=== PATIENT | male | born 1955 | race Caucasian/White ===

== ENCOUNTER 2020-06-28 18:19 | Emergency (ER) | payer BC ==
[2020-06-28] MEDS ORDERED: Lidocaine 1% 20 ML MDV INJECT ONE (18:25)
[2020-06-28] MEDS ORDERED: Lidocaine 1% 20 ML MDV ONE (18:27)
--- NOTE | 2020-06-28 19:09 | EDM.PDOC ---
ED HPI GENERAL MEDICAL PROBLEM - General Chief Complaint: Bite:Animal, Insect Stated Complaint: Dog Bite Time Seen by Provider: 06/28/20 19:07 Source of Information: Reports: Patient History Limitations: Reports: No Limitations - History of Present Illness INITIAL COMMENTS - FREE TEXT/NARRATIVE: This patient is a 64 year old that presents to the ER. Patient reports that his friend had a small dog and the dog was getting upset so he tried to pet and calm it down. He reports the drog bit his lower lip. Denies other injury. Reports Tetanus UTD. Onset: Today Onset Date: 06/28/20 Duration: Hour(s): (1) Location: Reports: Face (Lip) Front/Back Body Image: 1 - lower lip laceration Severity: Mild Improves with: Reports: None Worsens with: Reports: None Associated Symptoms: Reports: No Other Symptoms lower lip Pain Score (Numeric/FACES): 5 - Related Data Allergies Allergy/AdvReac Type Severity Reaction Status Date / Time No Known Allergies Allergy Verified 06/28/20 18:33 Home Meds: Home Meds Amoxicillin/Potassium Clav [Augmentin 875-125 Tablet] 1 each PO BID 7 Days #14 tablet 06/28/20 [Rx] Past Medical History - Past Health History Medical/Surgical History: Denies Medical/Surgical History Cardiovascular History: Reports: SD Musculoskeletal History: Reports: Back Pain, Chronic - Past Surgical History Neurological Surgical History: Reports: Lumbar Spine Musculoskeletal Surgical History: Reports: Carpal Tunnel, Other (See Below) Other Musculoskeletal Surgeries/Procedures:: ulnar nerve surgery Social & Family History - Family History Family Medical History: Noncontributory - Tobacco Use Smoking Status *Q: Current Every Day Smoker Years of Tobacco use: 20 Packs/Tins Daily: 0.5 - Caffeine Use Caffeine Use: Reports: None - Recreational Drug Use Recreational Drug Use: No ED ROS GENERAL - Review of Systems Review Of Systems: See Below Constitutional: Reports: No Symptoms Respiratory: Reports: No Symptoms Cardiovascular: Reports: No Symptoms Musculoskeletal: Reports: No Symptoms Skin: Reports: Wound (lower lip laceration) Neurological: Reports: No Symptoms Psychiatric: Reports: No Symptoms ED EXAM, ANIMAL BITE - Physical Exam Exam: See Below Exam Limited By: No Limitations General Appearance: Alert, WD/WN, No Apparent Distress Eye Exam: Bilateral Eye: Normal Inspection, PERRL Ears: Normal External Exam, Normal Canal, Hearing Grossly Normal, Normal TMs Nose: Normal Inspection, Normal Mucosa, No Blood Throat/Mouth: Normal Inspection, Normal Teeth (dentures upper and lowers), Normal Gums, Normal Oropharynx, Normal Voice, No Airway Compromise, Other (mid lower lip laceration) Head: Other (ower lip swelling at laceration site). No: Facial Tenderness, Sinus Tenderness Neck: Normal Inspection, Supple, Non-Tender, Full Range of Motion Respiratory/Chest: No Respiratory Distress, Lungs Clear, Normal Breath Sounds Cardiovascular: Normal Peripheral Pulses, Regular Rate, Rhythm, No Edema, No Gallop, No JVD, No Murmur, No Rub Extremities: Normal Inspection Neurological: Alert, Oriented Psychiatric: Normal Affect, Normal Mood Skin Exam: Normal Color, Warm/Dry, Other (mid lip lower laceration) Lymphadenopathy: Bilateral: No Adenopathy ED ANIMAL BITE PROCEDURES - Laceration/Wound Repair Lower Midline Other Lac/Wound Length In cm: 2 Appearance: Superficial, Other (lower lip midline) Distal NVT: Neuro & Vascular Intact, No Tendon Injury Anesthetic Type: Local Local Anesthesia - Lidocaine (Xylocaine): 1% Plain Local Anesthetic Volume: 1cc Skin Prep: Chlorhexidine (Hibiciens) Exploration/Debridement/Repair: Wound Explored, In a Bloodless Field, Explored to Base, No Foreign Material Found, Multiple Flaps Aligned Closed With: Sutures Suture Size: 5-0 # of Sutures: 2 Suture Type: Nylon, Interrupted Tetanus Status Addressed: Yes (not given: its UTD per patient) Complications: No Course - Vital Signs Last Recorded V/S: Last Vital Signs Temp 97.4 F 06/28/20 18:22 Pulse 89 06/28/20 18:22 Resp 16 06/28/20 18:22 BP 157/76 H 06/28/20 18:22 Pulse Ox 97 06/28/20 18:22 - Orders/Labs/Meds Meds: Medications Discontinued Medications Generic Name Dose Route Start Last Admin Trade Name Freq PRN Reason Stop Dose Admin Lidocaine HCl Confirm 06/28/20 18:27 Xylocaine 1% Administered 06/28/20 18:28 Dose 20 ml .ROUTE .STK-MED ONE Departure - Departure Time of Disposition: 19:07 Disposition: Home, Self-Care 01 Condition: Good Clinical Impression: Laceration Dog bite Qualifiers: Encounter type: initial encounter Qualified Code(s): W54.0XXA - Bitten by dog, initial encounter - Discharge Information *PRESCRIPTION DRUG MONITORING PROGRAM REVIEWED*: Not Applicable *COPY OF PRESCRIPTION DRUG MONITORING REPORT IN PATIENT RAHEEL: Not Applicable Prescriptions: Amoxicillin/Potassium Clav [Augmentin 875-125 Tablet] 1 each PO BID 7 Days #14 tablet Instructions: Animal Bite, Adult, [id number], Laceration Care, Adult Forms: ED Department Discharge Additional Instructions: Followup with primary care provider in about 5 days for suture removal Return to the ER for worsening of condition or any emergent concerns such as drainage, fever, vomiting, redness Wash the wound gently with soap and water, rinse, pat dry: Keep clean Augmentin 875mg 1 pill twice a day for 7 days #14 no refill sent to pharmacy Sepsis Event Note (ED) - Evaluation Sepsis Screening Result: No Definite Risk - Focused Exam Vital Signs: Vital Signs Temp Pulse Resp BP Pulse Ox 06/28/20 18:22 97.4 F 89 16 157/76 H 97 - Assessment/Plan Plan: PLEASE SEE RN NOTE FOR PFHS.
== END 2020-06-28 19:30 | disposition home or self-care (01) ==
LOC: CC.ED 18:19
DX: S01.551A Open bite of lip, initial encounter (principal); S01.511A Laceration without foreign body of lip, initial encounter; I25.2 Old myocardial infarction; F17.210 Nicotine dependence, cigarettes, uncomplicated; W54.0XXA Bitten by dog, initial encounter
CPT/HCPCS: 12011; 99283; J2001

== ENCOUNTER 2023-11-10 16:10 | Emergency (ER) | payer MEDICARE ==
[2023-11-10 16:32] LABS: BASOPHILS ABSOLUTE AUTO 0.04 10^3/uL (0.00-0.50); BASOPHILS PERCENT AUTO 0.4 % (0-1); EOSINOPHILS ABSOLUTE AUTO 0.06 10^3/uL (0.00-1.50); EOSINOPHILS PERCENT AUTO 0.6 % (0-6); HEMATOCRIT 46.9 % (42.0-52.0); HEMOGLOBIN 15.6 g/dL (14.0-18.0); IMMATURE GRAN ABSOLUTE AUTO 0.01 10^3/uL (0.00-0.49); IMMATURE GRAN PERCENT AUTO 0.1 % (0.0-4.9); LYMPHOCYTES ABSOLUTE AUTO 1.62 10^3/uL (0.60-5.00); LYMPHOCYTES PERCENT AUTO 16.7 % (24-44); MEAN CORPUSCULAR HEMOGLOBIN 32.4 pg (27.0-32.0); MEAN CORPUSCULAR HGB CONC 33.3 g/dL (32.0-36.0); MEAN CORPUSCULAR VOLUME 97.3 fL (83.0-97.0); MONOCYTES ABSOLUTE AUTO 0.71 10^3/uL (0.00-1.50); MONOCYTES PERCENT AUTO 7.3 % (0-10); NEUTROPHILS ABSOLUTE AUTO 7.28 x10^3/uL (1.80-8.00); NEUTROPHILS PERCENT AUTO 74.9 % (41-71); PLATELET COUNT,PLT 252 10^3/uL (150-400); RED BLOOD CELL COUNT 4.82 x10^6/uL (4.50-6.00); WHITE BLOOD CELL COUNT,WBC 9.7 10^3/uL (4.0-11.0)
[2023-11-10 16:52] LABS: ALBUMIN 3.1 g/dL (3.4-5.0); BILIRUBIN TOTAL 0.4 mg/dL (0.0-1.0); C-REACTIVE PROTEIN 4.17 mg/dL (<=0.50); CALCIUM 8.9 mg/dL (8.4-10.1); EST CRCL DRUG DOSING (CG) 75.88 mL/min; POTASSIUM,K 3.8 mEq/L (3.5-5.0)
[2023-11-10] MEDS ORDERED: Nirmatrelvir/Ritonavir 300 MG/100 MG Dose Pack PO SCH (17:00)
== END 2023-11-10 17:25 | disposition home or self-care (01) ==
LOC: CC.ED 16:10
DX: U07.1 COVID-19 (principal); I25.2 Old myocardial infarction; Z79.899 Other long term (current) drug therapy
CPT/HCPCS: 36415; 71046; 80053; 85025; 86140; 87804; 99284; 99285; A9270-GY; U0002